=== PATIENT | female | born 1955 | race Two or more races ===

== ENCOUNTER 2023-01-17 11:41 | Inpatient (IN) | payer OTHER, MEDICAID ==
[~2023-01-17] VITALS: Ht 160 cm; Wt 74.2 kg
[2023-01-17 13:20] LABS: Basophils # (auto) 0.1 10 ^3/uL (0-0.2); Basophils % (auto) 0.6 % (0.0-2.0); Eosinophils # (auto) 0.7 10 ^3/uL (0-0.8); Hematocrit 32.3 % (36.0-46.0); Hemoglobin 10.6 g/dL (12.2-16.2); Lymphocytes # (auto) 1.2 10 ^3/uL (0.4-5.4); Lymphocytes % (auto) 14.5 % (10.0-50.0); Mean Corpuscular Hgb Conc. 32.9 g/dL (32.0-36.0); Mean Corpuscular Volume 91.3 fL (80.0-100.0); Monocytes # (auto) 0.5 10 ^3/uL (0-1.3); Monocytes % (auto) 6.2 % (0.0-12.0); Neutrophils # (auto) 5.7 10 ^3/uL (1.6-8.6); Neutrophils % (auto) 69.7 % (37.0-80.0); Nucleated Red Blood Cells % 0.2 %; Red Blood Cells 3.54 10^6/uL (4.0-5.20); Red Cell Distribution Width 14.8 % (11.8-14.3); White Blood Cell 8.2 10^3/uL (4.4-10.8)
[2023-01-17 13:49] LABS: Potassium 4.8 mmol/L (3.5-5.1)
[2023-01-17] MEDS ORDERED: cefTRIAXone 1GM/50ML D5W 50 ML IV ONE ×2 (14:00→18:00)
[2023-01-17 14:11] LABS: Albumin 2.7 g/dL (3.4-5.0); BUN/Creatinine Ratio 23.2 (10.0-20.0); Bilirubin, Total 0.4 mg/dL (0.2-1.0); Calcium 8.6 mg/dL (8.5-10.1); Total Protein 6.1 g/dL (6.4-8.2)
[2023-01-17] MEDS ORDERED: ACETAMINOPHEN 325 MG TAB PO PRN (18:00)
[2023-01-17] MEDS ORDERED: MORPHINE SULFATE INJ 2 MG/ml SYRG IV PRN (18:00)
[2023-01-17] MEDS ORDERED: NITROGLYCERIN 0.4 MG SL TAB SL PRN (18:00)
[2023-01-17] MEDS ORDERED: IBUP800T26 PO (18:02)
[2023-01-17] MEDS ORDERED: FURO40TA4 PO (18:02)
[2023-01-17] MEDS ORDERED: AMIT1TAB35 PO (18:02)
[2023-01-17] MEDS ORDERED: FERR325T20 PO (18:02)
[2023-01-17] MEDS ORDERED: ATOR40TA52 PO (18:02)
[2023-01-17] MEDS ORDERED: DICL1GEL50 TOP (18:02)
[2023-01-17] MEDS ORDERED: GABA300C10 PO (18:02)
[2023-01-17] MEDS ORDERED: ENAL10TA13 PO (18:02)
[2023-01-17] MEDS ORDERED: LEVO112T4 PO (18:02)
[2023-01-17] MEDS ORDERED: TIZA4TAB7 PO (18:02)
[2023-01-17] MEDS ORDERED: CARV3.1240 PO (18:02)
[2023-01-17] MEDS ORDERED: FAMO20TA (18:02)
[2023-01-17] MEDS: MECLIZINE HCL 25 MG TAB PO SCH (18:30)
[2023-01-17] MEDS ORDERED: MECLIZINE HCL 25 MG TAB PO ONE (18:30)
[2023-01-17] MEDS: SODIUM CHLORIDE 0.9% 1,000 ML IV SCH (18:30)
[2023-01-17] MEDS ORDERED: PIPERACILLIN-TAZOB 3.375GM 100 ML IV SCH (22:00)
[2023-01-17] MEDS: GABAPENTIN 300 MG CAP PO SCH (22:08)
[2023-01-17] MEDS: CARVEDILOL 3.125 MG TAB PO SCH (22:08)
[2023-01-18 04:17] LABS: Urine Bacteria MANY /hpf (None Seen); Urine Blood 3+ /uL (Negative); Urine Hyaline Cast FEW /lpf (0 - 2); Urine Mucus FEW (None Seen); Urine Specific Gravity 1.017 (1.001-1.035); Urine WBC 469 /hpf (0 - 5); Urine WBC Clumps PRESENT /hpf (None Seen)
[2023-01-18 05:00] VITALS: BP 92/42
[2023-01-18] MEDS: MECLIZINE HCL 25 MG TAB PO SCH ×2 (05:41→17:54)
[2023-01-18] MEDS: GABAPENTIN 300 MG CAP PO SCH ×3 (05:41→21:54)
[2023-01-18 06:02] LABS: Basophils # (auto) 0.1 10 ^3/uL (0-0.2); Basophils % (auto) 0.7 % (0.0-2.0); Eosinophils # (auto) 0.9 10 ^3/uL (0-0.8); Eosinophils % (auto) 11.9 % (0.0-7.0); Hematocrit 32.3 % (36.0-46.0); Hemoglobin 10.6 g/dL (12.2-16.2); Lymphocytes # (auto) 1.4 10 ^3/uL (0.4-5.4); Lymphocytes % (auto) 18.2 % (10.0-50.0); Mean Corpuscular Hemoglobin 30.1 pg (28.0-32.0); Mean Corpuscular Hgb Conc. 32.7 g/dL (32.0-36.0); Mean Corpuscular Volume 92.1 fL (80.0-100.0); Monocytes # (auto) 0.6 10 ^3/uL (0-1.3); Neutrophils # (auto) 4.6 10 ^3/uL (1.6-8.6); Neutrophils % (auto) 61.2 % (37.0-80.0); Nucleated Red Blood Cells % 0.1 %; Red Blood Cells 3.51 10^6/uL (4.0-5.20); Red Cell Distribution Width 15.1 % (11.8-14.3); White Blood Cell 7.6 10^3/uL (4.4-10.8)
[2023-01-18 06:16] LABS: Albumin 2.4 g/dL (3.4-5.0); Calcium 8.6 mg/dL (8.5-10.1); Potassium 4.9 mmol/L (3.5-5.1)
[2023-01-18 06:21] LABS: Bilirubin, Total 0.4 mg/dL (0.2-1.0); Total Protein 6.1 g/dL (6.4-8.2)
[2023-01-18] MEDS: LEVOTHYROXINE SODIUM 112 MCG TAB PO SCH (06:31)
[2023-01-18 08:00] VITALS: BP 101/52
[2023-01-18] MEDS: cefTRIAXone 1GM/50ML D5W 50 ML IV SCH (08:54)
[2023-01-18] MEDS: FERROUS SULFATE 325mg EC TAB PO SCH (08:54)
[2023-01-18 09:29] VITALS: BP 101/52
[2023-01-18] MEDS: CARVEDILOL 3.125 MG TAB PO SCH ×2 (10:00→21:53)
[2023-01-18] MEDS ORDERED: FAMOTIDINE 20 MG TAB PO SCH (10:00)
[2023-01-18] MEDS ORDERED: ENOXAPARIN SOD 40 MG/0.4 ML SYRINGE SC SCH (10:00)
[2023-01-18] MEDS: FUROSEMIDE 40 MG TAB PO SCH (10:00)
[2023-01-18] MEDS: SODIUM CHLORIDE 0.9% 1,000 ML IV SCH (12:42)
[2023-01-18 13:00] VITALS: BP 104/47
[2023-01-18 16:42] VITALS: BP 104/52
[2023-01-18 20:35] LABS: Protein, Urine 33.6 mg/dL (0.0-11.9)
[2023-01-18] MEDS: ATORVASTATIN 20 MG TAB PO SCH (21:55)
[2023-01-18 22:00] VITALS: BP 99/50
[2023-01-18 22:04] LABS: Cholesterol 163 mg/dL (< 200); Triglycerides 202 mg/dL (< 150)
[2023-01-18 22:07] LABS: HDL Cholesterol 52 mg/dL (40-59); LDL Cholesterol 87 mg/dL (< 100)
[2023-01-19] MEDS: SODIUM CHLORIDE 0.9% 1,000 ML IV SCH ×3 (01:48→23:28)
[2023-01-19 05:00] VITALS: BP 107/50
[2023-01-19] MEDS: LEVOTHYROXINE SODIUM 112 MCG TAB PO SCH (05:44)
[2023-01-19] MEDS: GABAPENTIN 300 MG CAP PO SCH ×3 (05:44→21:15)
[2023-01-19] MEDS: MECLIZINE HCL 25 MG TAB PO SCH ×2 (05:44→19:09)
[2023-01-19] MEDS: FUROSEMIDE 40 MG TAB PO SCH (08:42)
[2023-01-19] MEDS: FERROUS SULFATE 325mg EC TAB PO SCH (08:42)
[2023-01-19] MEDS: ASPirin 81 mg TAB PO SCH (08:42)
[2023-01-19] MEDS: cefTRIAXone 1GM/50ML D5W 50 ML IV SCH (08:43)
[2023-01-19 09:14] VITALS: BP 124/80
[2023-01-19] MEDS: CARVEDILOL 3.125 MG TAB PO SCH ×2 (10:00→21:16)
[2023-01-19 13:10] VITALS: BP 112/62
[2023-01-19] MEDS: Tizanidine Hydrochloride (Tizanidine Hcl) 1 TAB PO SCH ×2 (14:00→21:15)
[2023-01-19 17:33] VITALS: BP 120/60
[2023-01-19] MEDS: AMITRIPTYLINE HCL 25 MG TAB PO SCH (21:14)
[2023-01-19] MEDS: ATORVASTATIN 20 MG TAB PO SCH (21:14)
[2023-01-19] MEDS ORDERED: DOCUSATE SOD 100 MG CAP PO ONE (22:45)
[2023-01-19] MEDS ORDERED: DOCUSATE SOD 100 MG CAP PO PRN (22:45)
[2023-01-19 23:45] VITALS: BP 118/77
[2023-01-20 05:08] VITALS: BP 133/79
[2023-01-20] MEDS: Tizanidine Hydrochloride (Tizanidine Hcl) 1 TAB PO SCH ×3 (06:27→21:16)
[2023-01-20] MEDS: GABAPENTIN 300 MG CAP PO SCH ×3 (06:27→21:13)
[2023-01-20] MEDS: MECLIZINE HCL 25 MG TAB PO SCH ×2 (06:27→19:27)
[2023-01-20] MEDS: LEVOTHYROXINE SODIUM 112 MCG TAB PO SCH (06:27)
[2023-01-20 08:00] VITALS: BP 149/67
[2023-01-20 08:30] VITALS: BP 149/67
[2023-01-20] MEDS: cefTRIAXone 1GM/50ML D5W 50 ML IV SCH (09:07)
[2023-01-20] MEDS: FERROUS SULFATE 325mg EC TAB PO SCH (09:14)
[2023-01-20] MEDS: FUROSEMIDE 40 MG TAB PO SCH (09:14)
[2023-01-20] MEDS: CARVEDILOL 3.125 MG TAB PO SCH ×2 (09:14→21:18)
[2023-01-20] MEDS: ASPirin 81 mg TAB PO SCH (09:14)
[2023-01-20 13:00] VITALS: BP 134/69
[2023-01-20] MEDS: SODIUM CHLORIDE 0.9% 1,000 ML IV SCH ×2 (13:10→23:15)
[2023-01-20] MEDS ORDERED: ERGOCALCIFEROL 50,000 UNIT(1.25MG) CAP PO SCH (14:30)
[2023-01-20 16:30] VITALS: BP 127/59
[2023-01-20] MEDS: ATORVASTATIN 20 MG TAB PO SCH (21:12)
[2023-01-20] MEDS: AMITRIPTYLINE HCL 25 MG TAB PO SCH (21:13)
[2023-01-20 22:00] VITALS: BP 143/72
[2023-01-20] MEDS: LORazepam 0.5 MG TAB PO PRN (23:18)
[2023-01-21] MEDS ORDERED: LORazepam 2MG/ML-1ML VIAL IV PRN (04:00)
[2023-01-21 05:00] VITALS: BP 149/88
[2023-01-21 05:33] LABS: Albumin 2.7 g/dL (3.4-5.0); Potassium 4.5 mmol/L (3.5-5.1)
[2023-01-21 05:46] LABS: BUN/Creatinine Ratio 13.9 (10.0-20.0); Bilirubin, Total 0.5 mg/dL (0.2-1.0); Calcium 9.1 mg/dL (8.5-10.1); Phosphorus 2.1 mg/dL (2.5-4.90); Total Protein 6.8 g/dL (6.4-8.2); Uric Acid 9.2 mg/dL (2.6-6.0)
[2023-01-21] MEDS: MECLIZINE HCL 25 MG TAB PO SCH ×2 (05:53→18:23)
[2023-01-21] MEDS: GABAPENTIN 300 MG CAP PO SCH ×3 (05:53→22:00)
[2023-01-21] MEDS: Tizanidine Hydrochloride (Tizanidine Hcl) 1 TAB PO SCH ×3 (05:53→22:00)
[2023-01-21] MEDS: LEVOTHYROXINE SODIUM 112 MCG TAB PO SCH (05:54)
[2023-01-21 08:00] VITALS: BP 156/99
[2023-01-21 09:00] VITALS: BP 156/99
[2023-01-21] MEDS: cefTRIAXone 1GM/50ML D5W 50 ML IV SCH (09:00)
[2023-01-21] MEDS ORDERED: HALOPERIDOL LACTATE 5 MG/ML INJ VIAL IM ONE ×3 (09:30→16:30)
[2023-01-21] MEDS: LORazepam 0.5 MG TAB PO PRN (09:42)
[2023-01-21] MEDS: CARVEDILOL 3.125 MG TAB PO SCH ×2 (10:00→22:00)
[2023-01-21] MEDS: ASPirin 81 mg TAB PO SCH (10:00)
[2023-01-21] MEDS: FUROSEMIDE 40 MG TAB PO SCH (10:00)
[2023-01-21 13:00] VITALS: BP 151/96
[2023-01-21] MEDS ORDERED: MORPHINE SULFATE 4 MG/ML SYR/VIAL IV PRN (19:30)
[2023-01-21] MEDS ORDERED: NITROGLYCERIN 0.4 MG SL TAB SL PRN (19:30)
[2023-01-21] MEDS: ATORVASTATIN 20 MG TAB PO SCH (22:00)
[2023-01-21] MEDS: AMITRIPTYLINE HCL 25 MG TAB PO SCH (22:00)
[2023-01-21] MEDS: HALOPERIDOL LACTATE 5 MG/ML INJ VIAL IM SCH (22:43)
[2023-01-22] VITALS (7 sets, daily range): BP systolic 85–127; BP diastolic 41–79
[2023-01-22] MEDS: Tizanidine Hydrochloride (Tizanidine Hcl) 1 TAB PO SCH ×3 (06:00→21:39)
[2023-01-22] MEDS: GABAPENTIN 300 MG CAP PO SCH ×3 (06:00→21:39)
[2023-01-22] MEDS: HALOPERIDOL LACTATE 5 MG/ML INJ VIAL IM SCH ×3 (06:13→21:38)
[2023-01-22] MEDS: MECLIZINE HCL 25 MG TAB PO SCH (06:14)
[2023-01-22] MEDS: LEVOTHYROXINE SODIUM 112 MCG TAB PO SCH (07:00)
[2023-01-22] MEDS: CARVEDILOL 3.125 MG TAB PO SCH (10:00)
[2023-01-22] MEDS: FUROSEMIDE 40 MG TAB PO SCH (10:00)
[2023-01-22] MEDS: ASPirin 81 mg TAB PO SCH (13:00)
[2023-01-22 14:44] LABS: Basophils # (auto) 0.1 10 ^3/uL (0-0.2); Basophils % (auto) 0.6 % (0.0-2.0); Eosinophils # (auto) 0 10 ^3/uL (0-0.8); Eosinophils % (auto) 0.1 % (0.0-7.0); Hematocrit 28.5 % (36.0-46.0); Hemoglobin 9.6 g/dL (12.2-16.2); Lymphocytes # (auto) 1.3 10 ^3/uL (0.4-5.4); Lymphocytes % (auto) 10.3 % (10.0-50.0); Mean Corpuscular Hemoglobin 30.3 pg (28.0-32.0); Mean Corpuscular Hgb Conc. 33.5 g/dL (32.0-36.0); Mean Corpuscular Volume 90.3 fL (80.0-100.0); Monocytes % (auto) 7.9 % (0.0-12.0); Neutrophils # (auto) 10.5 10 ^3/uL (1.6-8.6); Neutrophils % (auto) 81.1 % (37.0-80.0); Red Blood Cells 3.16 10^6/uL (4.0-5.20); Red Cell Distribution Width 14.6 % (11.8-14.3)
[2023-01-22] MEDS: ERTAPENEM SOD INJ 1 GM in SODIUM CHL 0.9% 50 ML IV SCH (14:57)
[2023-01-22 15:04] LABS: Albumin 2.4 g/dL (3.4-5.0); Calcium 8.5 mg/dL (8.5-10.1); Magnesium 1.8 mg/dL (1.6-2.6); Potassium 3.7 mmol/L (3.5-5.1)
[2023-01-22 15:09] LABS: BUN/Creatinine Ratio 17.1 (10.0-20.0); Bilirubin, Total 0.9 mg/dL (0.2-1.0); Total Protein 6.2 g/dL (6.4-8.2)
[2023-01-22] MEDS: SODIUM CHLORIDE 0.9% 1,000 ML IV SCH ×2 (16:30→23:10)
[2023-01-22] MEDS: AMITRIPTYLINE HCL 25 MG TAB PO SCH (21:39)
[2023-01-22] MEDS: ATORVASTATIN 20 MG TAB PO SCH (21:39)
[2023-01-23 04:46] VITALS: BP 129/60
[2023-01-23] MEDS: HALOPERIDOL LACTATE 5 MG/ML INJ VIAL IM SCH ×4 (06:00→22:14)
[2023-01-23] MEDS: Tizanidine Hydrochloride (Tizanidine Hcl) 1 TAB PO SCH ×3 (06:02→22:14)
[2023-01-23] MEDS: MECLIZINE HCL 25 MG TAB PO SCH ×3 (06:02→20:02)
[2023-01-23] MEDS: GABAPENTIN 300 MG CAP PO SCH ×3 (06:03→22:15)
[2023-01-23] MEDS: LEVOTHYROXINE SODIUM 112 MCG TAB PO SCH (06:03)
[2023-01-23] MEDS: SODIUM CHLORIDE 0.9% 1,000 ML IV SCH ×2 (06:03→10:45)
[2023-01-23 08:30] VITALS: BP 98/55
[2023-01-23] MEDS: ASPirin 81 mg TAB PO SCH (10:00)
[2023-01-23] MEDS: ERTAPENEM SOD INJ 1 GM in SODIUM CHL 0.9% 50 ML IV SCH (10:00)
[2023-01-23 13:00] VITALS: BP 100/52
[2023-01-23 17:18] VITALS: BP 124/64
[2023-01-23 22:00] VITALS: BP 133/66
[2023-01-23] MEDS: AMITRIPTYLINE HCL 25 MG TAB PO SCH (22:15)
[2023-01-23] MEDS: ATORVASTATIN 20 MG TAB PO SCH (22:15)
[2023-01-24 04:36] VITALS: BP 148/59
[2023-01-24] MEDS: GABAPENTIN 300 MG CAP PO SCH ×3 (05:47→21:35)
[2023-01-24] MEDS: MECLIZINE HCL 25 MG TAB PO SCH ×2 (05:48→18:03)
[2023-01-24] MEDS: Tizanidine Hydrochloride (Tizanidine Hcl) 1 TAB PO SCH ×3 (05:49→21:35)
[2023-01-24] MEDS: SODIUM CHLORIDE 0.9% 1,000 ML IV SCH ×2 (05:57→15:21)
[2023-01-24] MEDS: HALOPERIDOL LACTATE 5 MG/ML INJ VIAL IM SCH ×2 (05:58→14:00)
[2023-01-24] MEDS: LEVOTHYROXINE SODIUM 112 MCG TAB PO SCH (06:42)
[2023-01-24 09:00] VITALS: BP 125/55
[2023-01-24] MEDS: ASPirin 81 mg TAB PO SCH (09:25)
[2023-01-24] MEDS: ERTAPENEM SOD INJ 1 GM in SODIUM CHL 0.9% 50 ML IV SCH (09:26)
[2023-01-24 12:00] VITALS: BP 139/83
[2023-01-24 13:00] VITALS: BP 142/68
[2023-01-24 17:00] VITALS: BP 100/53
[2023-01-24] MEDS: ATORVASTATIN 20 MG TAB PO SCH (21:35)
[2023-01-24] MEDS: AMITRIPTYLINE HCL 25 MG TAB PO SCH (21:35)
[2023-01-24 22:00] VITALS: BP 114/66
[2023-01-24] MEDS ORDERED: HALOPERIDOL LACTATE 5 MG/ML INJ VIAL IM PRN (22:00)
[2023-01-25] VITALS (8 sets, daily range): BP systolic 112–132; BP diastolic 63–68
[2023-01-25] MEDS: SODIUM CHLORIDE 0.9% 1,000 ML IV SCH ×2 (00:55→21:36)
[2023-01-25] MEDS: GABAPENTIN 300 MG CAP PO SCH ×3 (06:03→21:35)
[2023-01-25] MEDS: Tizanidine Hydrochloride (Tizanidine Hcl) 1 TAB PO SCH ×3 (06:03→21:37)
[2023-01-25] MEDS: LEVOTHYROXINE SODIUM 112 MCG TAB PO SCH (06:03)
[2023-01-25] MEDS: MECLIZINE HCL 25 MG TAB PO SCH ×2 (06:03→18:44)
[2023-01-25 06:36] LABS: BUN/Creatinine Ratio 17.5 (10.0-20.0); Calcium 8.8 mg/dL (8.5-10.1)
[2023-01-25 09:59] LABS: Folate (Folic Acid) 8.36 ng/mL (5.38-24)
[2023-01-25] MEDS: ERTAPENEM SOD INJ 1 GM in SODIUM CHL 0.9% 50 ML IV SCH (10:11)
[2023-01-25] MEDS: ASPirin 81 mg TAB PO SCH (10:11)
[2023-01-25] MEDS: ATORVASTATIN 20 MG TAB PO SCH (21:35)
[2023-01-25] MEDS: AMITRIPTYLINE HCL 25 MG TAB PO SCH (21:36)
[2023-01-26 05:00] VITALS: BP 130/72
[2023-01-26] MEDS: SODIUM CHLORIDE 0.9% 1,000 ML IV SCH (05:06)
[2023-01-26] MEDS: MECLIZINE HCL 25 MG TAB PO SCH (06:12)
[2023-01-26] MEDS: GABAPENTIN 300 MG CAP PO SCH ×2 (06:12→14:31)
[2023-01-26] MEDS: Tizanidine Hydrochloride (Tizanidine Hcl) 1 TAB PO SCH ×2 (06:13→14:31)
[2023-01-26] MEDS: LEVOTHYROXINE SODIUM 112 MCG TAB PO SCH (06:15)
[2023-01-26 08:00] VITALS: BP 126/65
[2023-01-26 09:00] VITALS: BP 123/63
[2023-01-26] MEDS: ERTAPENEM SOD INJ 1 GM in SODIUM CHL 0.9% 50 ML IV SCH (10:13)
[2023-01-26] MEDS: ASPirin 81 mg TAB PO SCH (10:14)
[2023-01-26 13:00] VITALS: BP 132/71
== END 2023-01-26 18:56 | DRG 871 ==
LOC: EDBD 11:41 → ER 11:41 → TELE 18:00 → TELE-EAST 01-18 03:15
PROVIDERS: ADMIT Nurse Practitioner Family; ATTEND Family Medicine
PROC: 05HF33Z Insertion of Infusion Device into Left Cephalic Vein, Percutaneous Approach (ICD-10-PCS; principal; 2023-01-23)
PROC: B54NZZA Ultrasonography of Left Upper Extremity Veins, Guidance (ICD-10-PCS; 2023-01-23)
DX: A41.9 Sepsis, unspecified organism (principal); N17.0 Acute kidney failure with tubular necrosis; R65.21 Severe sepsis with septic shock; E46 Unspecified protein-calorie malnutrition; I13.0 Hypertensive heart and chronic kidney disease with heart failure and stage 1 through stage 4 chronic kidney disease, or unspecified chronic kidney disease; N30.01 Acute cystitis with hematuria; Z16.12 Extended spectrum beta lactamase (ESBL) resistance; R29.6 Repeated falls; D63.1 Anemia in chronic kidney disease; E86.0 Dehydration; N18.9 Chronic kidney disease, unspecified; I50.9 Heart failure, unspecified; Z68.27 Body mass index [BMI] 27.0-27.9, adult; R55 Syncope and collapse; R00.1 Bradycardia, unspecified; Z20.822 Contact with and (suspected) exposure to COVID-19; J43.9 Emphysema, unspecified; E55.9 Vitamin D deficiency, unspecified; I48.91 Unspecified atrial fibrillation; B96.20 Unspecified Escherichia coli [E. coli] as the cause of diseases classified elsewhere; I25.10 Atherosclerotic heart disease of native coronary artery without angina pectoris; I25.2 Old myocardial infarction; Z79.82 Long term (current) use of aspirin; Z79.899 Other long term (current) drug therapy; Z95.1 Presence of aortocoronary bypass graft; Z95.810 Presence of automatic (implantable) cardiac defibrillator
CPT/HCPCS: 36415; 36600; 70450; 70551; 71045; 72192; 74176; 76775; 80048; 80053; 80061; 81001; 82306; 82570; 82607; 82746; 82805; 82962; 83036; 83605; 83735; 83930; 83970; 84100; 84155; 84156; 84165; 84300; 84443; 84484; 84550; 85025; 87040; 87086; 87088; 87186; 87426; 93005; 93306; 93886; 95819; 96365; 97110; 97116; 97163; 97530; G0378; J0696; J1335